=== PATIENT | male | born 1975 | race Two or more races ===

== ENCOUNTER 2017-02-28 00:53 | Inpatient (IN) | payer MEDICAID, OTHER ==
[~2017-02-28] VITALS: Ht 170.2 cm; Wt 75.0 kg
[2017-02-28] MEDS ORDERED: SODIUM CHLORIDE FLUSH 10ML SYR IVF ONE (01:30)
[2017-02-28] MEDS ORDERED: VANCOMYCIN PER PHARMACY IV ONE (01:30)
[2017-02-28] MEDS ORDERED: VANCOMYCIN 1,600 MG in SODIUM CHLORIDE 0.9% 250 ML IV ONE (01:30)
[2017-02-28] MEDS ORDERED: PIPERACILLIN/TAZO/PMX 3.375GM 50 ML IVPB ONE (01:30)
[2017-02-28] MEDS ORDERED: SODIUM CHLORIDE 0.9% 1,000ML IVBOLUS ONE (01:30)
[2017-02-28] MEDS ORDERED: PIPERACILLIN/TAZO/PMX 3.375GM 50 ML ONE (01:35)
[2017-02-28 01:44] LABS: HEMATOCRIT 38.7 % (39.2-51.8); HEMOGLOBIN 13.1 g/dL (13.7-18.0); WHITE BLOOD COUNT 10.4 x10^3/uL (3.4-10)
[2017-02-28 01:58] LABS: ASPARTATE AMINO TRANSFERASE 13 U/L (15-37); BLOOD UREA NITROGEN 27 mg/dL (7-18)
[2017-02-28] MEDS ORDERED: SODIUM CHLORIDE 0.9% 1,000 ML IV ONE (02:15)
[2017-02-28] MEDS ORDERED: MORPHINE SULFATE 4 MG/ML, 1ML IVPush PRN (02:30)
[2017-02-28] MEDS ORDERED: ONDANSETRON 2MG/ML, 2ML IVPush PRN ×2 (02:30→03:30)
[2017-02-28] MEDS: SODIUM CHLORIDE 0.9% 1,000 ML IV SCH ×2 (03:07→13:47)
[2017-02-28] MEDS ORDERED: HYDROmorphone 2 MG/ML, 1ML IVPush PRN (03:30)
[2017-02-28] MEDS ORDERED: DEXTROSE 4 GM TAB.CHEW PO PRN (03:30)
[2017-02-28] MEDS ORDERED: ACETAMINOPHEN 500 MG TABLET PO PRN (03:30)
[2017-02-28] MEDS ORDERED: GLUCAGON 1 MG IM PRN (03:30)
[2017-02-28] MEDS ORDERED: ZOLPIDEM 5MG TABLET PO PRN (03:30)
[2017-02-28] MEDS ORDERED: DEXTROSE 50%, 50ML SYRINGE IVPush PRN (03:30)
[2017-02-28] MEDS ORDERED: VANCOMYCIN PER PHARMACY MC PRN (03:30)
[2017-02-28 03:38] VITALS: BP 161/94
[2017-02-28] MEDS ORDERED: PHARMACOKINETIC CONSULTATION MC ONE (04:00)
[2017-02-28] MEDS ORDERED: PHARMACOKINETIC MONITORING MC PRN (04:00)
[2017-02-28] MEDS ORDERED: FLU VACC QS2017-18 (36MOS+) UP/PF 0.5 ML IM-VACC ONE (04:30)
[2017-02-28] MEDS ORDERED: PNEUMOCOCCAL 23 VACCINE IM-VACC ONE (04:30)
[2017-02-28] MEDS: INSULIN ASPART 100 UNITS/ML, PEN SQ-INSULIN SCH ×4 (07:00→21:00)
[2017-02-28] MEDS: PIPERACILLIN/TAZO/PMX 3.375GM 50 ML IV SCH ×3 (07:41→20:59)
[2017-02-28] MEDS: LACTULOSE 10 GM/15 ML UDC PO SCH ×2 (07:42→21:00)
[2017-02-28] MEDS: SODIUM CHLORIDE FLUSH 10ML SYR IVF SCH ×2 (07:42→20:59)
[2017-02-28 09:30] VITALS: BP 147/90
[2017-02-28 14:00] VITALS: BP 145/89
[2017-02-28] MEDS: VANCOMYCIN 1,400 MG in SODIUM CHLORIDE 0.9% 250 ML IV SCH (14:55)
[2017-02-28 19:39] VITALS: BP 130/76
[2017-03-01] MEDS: SODIUM CHLORIDE 0.9% 1,000 ML IV SCH ×3 (00:40→16:35)
[2017-03-01] MEDS: PIPERACILLIN/TAZO/PMX 3.375GM 50 ML IV SCH ×3 (01:15→13:27)
[2017-03-01 01:20] VITALS: BP 140/77
[2017-03-01] MEDS: VANCOMYCIN 1,400 MG in SODIUM CHLORIDE 0.9% 250 ML IV SCH ×2 (02:14→14:18)
[2017-03-01] MEDS: OXYcodone IR 5MG TABLET PO PRN ×2 (06:33→16:33)
[2017-03-01] MEDS: INSULIN ASPART 100 UNITS/ML, PEN SQ-INSULIN SCH ×4 (06:34→22:25)
[2017-03-01 07:22] VITALS: BP 144/88
[2017-03-01] MEDS: SODIUM CHLORIDE FLUSH 10ML SYR IVF SCH ×2 (07:31→21:04)
[2017-03-01] MEDS: LACTULOSE 10 GM/15 ML UDC PO SCH ×2 (07:31→21:00)
[2017-03-01 12:58] VITALS: BP 153/91
[2017-03-01] MEDS: LISINOPRIL 20 MG TABLET PO SCH (16:33)
[2017-03-01 20:00] VITALS: BP 144/92
[2017-03-01] MEDS: PIPERACILLIN/TAZO 3.375 GM in SODIUM CHLORIDE 0.9% 50 ML IV SCH (20:57)
[2017-03-02] MEDS: OXYcodone IR 5MG TABLET PO PRN ×3 (00:09→11:54)
[2017-03-02 02:00] VITALS: BP 151/89
[2017-03-02] MEDS: PIPERACILLIN/TAZO 3.375 GM in SODIUM CHLORIDE 0.9% 50 ML IV SCH ×5 (02:16→23:15)
[2017-03-02] MEDS: SODIUM CHLORIDE 0.9% 1,000 ML IV SCH ×2 (02:22→17:31)
[2017-03-02] MEDS: VANCOMYCIN 1,400 MG in SODIUM CHLORIDE 0.9% 250 ML IV SCH ×2 (03:01→17:31)
[2017-03-02 05:03] LABS: HEMATOCRIT 39.6 % (39.2-51.8); HEMOGLOBIN 13.1 g/dL (13.7-18.0); WHITE BLOOD COUNT 7.6 x10^3/uL (3.4-10)
[2017-03-02 05:09] LABS: ASPARTATE AMINO TRANSFERASE 10 U/L (15-37); BLOOD UREA NITROGEN 13 mg/dL (7-18)
[2017-03-02] MEDS: INSULIN ASPART 100 UNITS/ML, PEN SQ-INSULIN SCH ×4 (06:39→20:54)
[2017-03-02 06:53] VITALS: BP 150/89
[2017-03-02] MEDS: LACTULOSE 10 GM/15 ML UDC PO SCH ×2 (09:00→20:55)
[2017-03-02] MEDS: SODIUM CHLORIDE FLUSH 10ML SYR IVF SCH ×2 (11:24→23:16)
[2017-03-02] MEDS: LISINOPRIL 20 MG TABLET PO SCH (11:25)
[2017-03-02 13:25] VITALS: BP 136/87
[2017-03-02 20:06] VITALS: BP 124/74
[2017-03-03 01:25] VITALS: BP 123/86
[2017-03-03] MEDS: OXYcodone IR 5MG TABLET PO PRN ×3 (04:18→22:13)
[2017-03-03] MEDS: PIPERACILLIN/TAZO 3.375 GM in SODIUM CHLORIDE 0.9% 50 ML IV SCH ×4 (04:18→22:13)
[2017-03-03] MEDS: VANCOMYCIN 1,400 MG in SODIUM CHLORIDE 0.9% 250 ML IV SCH ×2 (05:10→17:09)
[2017-03-03] MEDS ORDERED: INSULIN DETEMIR 100 UNITS/ML, PEN SQ-INSULIN SCH ×2 (06:00→21:00)
[2017-03-03 06:41] VITALS: BP 145/68
[2017-03-03] MEDS: SODIUM CHLORIDE FLUSH 10ML SYR IVF SCH ×2 (08:59→20:56)
[2017-03-03] MEDS: INSULIN ASPART 100 UNITS/ML, PEN SQ-INSULIN SCH ×4 (08:59→20:56)
[2017-03-03] MEDS: LISINOPRIL 20 MG TABLET PO SCH (09:00)
[2017-03-03] MEDS: LACTULOSE 10 GM/15 ML UDC PO SCH ×2 (09:00→20:56)
[2017-03-03] MEDS: SODIUM CHLORIDE 0.9% 1,000 ML IV SCH (10:42)
[2017-03-03 12:48] VITALS: BP 123/74
[2017-03-03 20:16] VITALS: BP 156/90
[2017-03-04 02:26] VITALS: BP 127/79
[2017-03-04] MEDS: SODIUM CHLORIDE 0.9% 1,000 ML IV SCH ×2 (02:39→16:03)
[2017-03-04] MEDS: OXYcodone IR 5MG TABLET PO PRN ×3 (02:39→20:28)
[2017-03-04] MEDS: PIPERACILLIN/TAZO 3.375 GM in SODIUM CHLORIDE 0.9% 50 ML IV SCH ×4 (04:45→22:39)
[2017-03-04] MEDS: VANCOMYCIN 1,400 MG in SODIUM CHLORIDE 0.9% 250 ML IV SCH ×2 (05:32→16:59)
[2017-03-04] MEDS: INSULIN ASPART 100 UNITS/ML, PEN SQ-INSULIN SCH ×4 (06:29→20:23)
[2017-03-04 06:35] VITALS: BP 143/86
[2017-03-04] MEDS: LISINOPRIL 20 MG TABLET PO SCH (07:35)
[2017-03-04] MEDS: SODIUM CHLORIDE FLUSH 10ML SYR IVF SCH ×2 (07:35→20:22)
[2017-03-04] MEDS: LACTULOSE 10 GM/15 ML UDC PO SCH ×2 (07:36→20:23)
[2017-03-04] MEDS: INSULIN DETEMIR 100 UNITS/ML, PEN SQ-INSULIN SCH ×2 (07:50→20:23)
[2017-03-04] MEDS: MAGNESIUM OXIDE 400 MG TABLET PO SCH ×2 (11:00→20:22)
[2017-03-04 12:57] VITALS: BP 116/71
[2017-03-04 19:16] VITALS: BP 134/78
[2017-03-05 03:55] VITALS: BP 145/87
[2017-03-05] MEDS: PIPERACILLIN/TAZO 3.375 GM in SODIUM CHLORIDE 0.9% 50 ML IV SCH ×4 (04:37→22:24)
[2017-03-05] MEDS: VANCOMYCIN 1,400 MG in SODIUM CHLORIDE 0.9% 250 ML IV SCH ×2 (05:17→17:01)
[2017-03-05 05:39] LABS: HEMATOCRIT 37.5 % (39.2-51.8); HEMOGLOBIN 12.6 g/dL (13.7-18.0); WHITE BLOOD COUNT 7.1 x10^3/uL (3.4-10)
[2017-03-05 06:03] LABS: ASPARTATE AMINO TRANSFERASE 15 U/L (15-37); BLOOD UREA NITROGEN 13 mg/dL (7-18)
[2017-03-05 06:27] VITALS: BP 161/90
[2017-03-05] MEDS: MAGNESIUM OXIDE 400 MG TABLET PO SCH ×2 (07:23→20:38)
[2017-03-05] MEDS: LACTULOSE 10 GM/15 ML UDC PO SCH ×2 (07:24→20:38)
[2017-03-05] MEDS: LISINOPRIL 20 MG TABLET PO SCH (07:24)
[2017-03-05] MEDS: INSULIN DETEMIR 100 UNITS/ML, PEN SQ-INSULIN SCH ×2 (07:36→20:39)
[2017-03-05] MEDS: SODIUM CHLORIDE FLUSH 10ML SYR IVF SCH ×2 (07:36→20:40)
[2017-03-05] MEDS: INSULIN ASPART 100 UNITS/ML, PEN SQ-INSULIN SCH ×4 (07:37→20:40)
[2017-03-05] MEDS: SODIUM CHLORIDE 0.9% 1,000 ML IV SCH (10:37)
[2017-03-05 13:25] VITALS: BP 140/81
[2017-03-05 20:08] VITALS: BP 155/87
[2017-03-05] MEDS: OXYcodone IR 5MG TABLET PO PRN (20:39)
[2017-03-06] MEDS: SODIUM CHLORIDE 0.9% 1,000 ML IV SCH ×2 (00:32→17:38)
[2017-03-06 01:28] VITALS: BP 157/87
[2017-03-06] MEDS: PIPERACILLIN/TAZO 3.375 GM in SODIUM CHLORIDE 0.9% 50 ML IV SCH ×4 (03:39→22:51)
[2017-03-06] MEDS: VANCOMYCIN 1,400 MG in SODIUM CHLORIDE 0.9% 250 ML IV SCH ×2 (04:19→17:38)
[2017-03-06] MEDS ORDERED: NEOSPORIN OINT, 15GM ONE (06:11)
[2017-03-06] MEDS ORDERED: EPINEPHRINE 1 MG/ML, 1ML ONE (06:11)
[2017-03-06] MEDS ORDERED: BUPIVACAINE/PF 0.5% ONE (06:11)
[2017-03-06 06:24] VITALS: BP 134/84
[2017-03-06] MEDS: INSULIN ASPART 100 UNITS/ML, PEN SQ-INSULIN SCH ×4 (07:00→20:22)
[2017-03-06] MEDS ORDERED: ONDANSETRON 2MG/ML, 2ML ONE (07:11)
[2017-03-06] MEDS ORDERED: KETOROLAC 30 MG/1 ML ONE (07:11)
[2017-03-06] MEDS ORDERED: PROPOFOL 10 MG/ML, 20ML ONE (07:11)
[2017-03-06] MEDS ORDERED: DEXAMETHASONE 4 MG/ML, 1ML ONE (07:11)
[2017-03-06] MEDS ORDERED: CEFAZOLIN 1,000 MG ONE (07:11)
[2017-03-06] MEDS ORDERED: PROMETHAZINE 25 MG/ML, 1ML IV PRN (08:00)
[2017-03-06] MEDS ORDERED: ACETAMINOPHEN 325 MG TABLET PO PRN (08:00)
[2017-03-06] MEDS ORDERED: hydrALAzine 20 MG/ML, 1ML IV PRN (08:00)
[2017-03-06] MEDS ORDERED: HYDROmorphone 1 MG/ML, 1ML IV PRN (08:00)
[2017-03-06] MEDS ORDERED: FENTANYL PF 100 MCG/2ML IV PRN (08:00)
[2017-03-06] MEDS ORDERED: LABETALOL 5MG/ML, 20ML IV PRN (08:00)
[2017-03-06] MEDS ORDERED: ONDANSETRON 2MG/ML, 2ML IVPush PRN (08:00)
[2017-03-06] MEDS ORDERED: MEPERIDINE/PF 25MG/0.5ML IVPush PRN (08:00)
[2017-03-06] MEDS ORDERED: OXYcodone 5 MG/5 ML ORAL.SOL UDC PO PRN (08:00)
[2017-03-06 08:47] VITALS: BP 148/85
[2017-03-06] MEDS: OXYcodone IR 5MG TABLET PO PRN ×3 (08:52→19:55)
[2017-03-06] MEDS: SODIUM CHLORIDE FLUSH 10ML SYR IVF SCH ×2 (09:00→20:23)
[2017-03-06] MEDS: LACTULOSE 10 GM/15 ML UDC PO SCH ×2 (09:00→20:23)
[2017-03-06] MEDS: LISINOPRIL 20 MG TABLET PO SCH (09:54)
[2017-03-06] MEDS: MAGNESIUM OXIDE 400 MG TABLET PO SCH ×2 (09:54→20:22)
[2017-03-06] MEDS: INSULIN DETEMIR 100 UNITS/ML, PEN SQ-INSULIN SCH ×2 (09:55→20:23)
[2017-03-06 12:16] VITALS: BP 132/88
[2017-03-06 19:40] VITALS: BP 166/86
[2017-03-07 00:01] VITALS: BP 158/72
[2017-03-07] MEDS: OXYcodone IR 5MG TABLET PO PRN ×3 (02:56→22:41)
[2017-03-07] MEDS: PIPERACILLIN/TAZO 3.375 GM in SODIUM CHLORIDE 0.9% 50 ML IV SCH ×4 (04:14→22:36)
[2017-03-07 04:20] VITALS: BP 149/81
[2017-03-07] MEDS: VANCOMYCIN 1,400 MG in SODIUM CHLORIDE 0.9% 250 ML IV SCH (05:43)
[2017-03-07 07:17] VITALS: BP 144/72
[2017-03-07] MEDS: INSULIN ASPART 100 UNITS/ML, PEN SQ-INSULIN SCH ×4 (07:49→22:37)
[2017-03-07] MEDS: SODIUM CHLORIDE 0.9% 1,000 ML IV SCH ×2 (07:49→22:35)
[2017-03-07] MEDS: LACTULOSE 10 GM/15 ML UDC PO SCH ×2 (07:50→22:38)
[2017-03-07] MEDS: LISINOPRIL 20 MG TABLET PO SCH (07:51)
[2017-03-07] MEDS: MAGNESIUM OXIDE 400 MG TABLET PO SCH ×2 (07:51→22:35)
[2017-03-07] MEDS: SODIUM CHLORIDE FLUSH 10ML SYR IVF SCH ×2 (07:55→22:38)
[2017-03-07] MEDS: INSULIN DETEMIR 100 UNITS/ML, PEN SQ-INSULIN SCH ×2 (09:33→22:38)
[2017-03-07 13:25] VITALS: BP 136/87
[2017-03-07 19:32] VITALS: BP 127/78
[2017-03-07] MEDS ORDERED: VANCOMYCIN 1,500 MG in SODIUM CHLORIDE 0.9% 250 ML IV SCH (23:00)
[2017-03-08 02:26] VITALS: BP 144/88
[2017-03-08] MEDS: OXYcodone IR 5MG TABLET PO PRN ×2 (04:22→14:32)
[2017-03-08] MEDS: PIPERACILLIN/TAZO 3.375 GM in SODIUM CHLORIDE 0.9% 50 ML IV SCH ×2 (04:25→10:40)
[2017-03-08] MEDS: INSULIN ASPART 100 UNITS/ML, PEN SQ-INSULIN SCH ×2 (06:47→11:16)
[2017-03-08 07:30] VITALS: BP 180/96
[2017-03-08] MEDS: SODIUM CHLORIDE FLUSH 10ML SYR IVF SCH (09:00)
[2017-03-08] MEDS: LISINOPRIL 20 MG TABLET PO SCH (09:32)
[2017-03-08] MEDS: MAGNESIUM OXIDE 400 MG TABLET PO SCH (09:32)
[2017-03-08] MEDS: LACTULOSE 10 GM/15 ML UDC PO SCH (09:32)
[2017-03-08] MEDS: INSULIN DETEMIR 100 UNITS/ML, PEN SQ-INSULIN SCH (09:33)
[2017-03-08] MEDS: SODIUM CHLORIDE 0.9% 1,000 ML IV SCH (10:40)
[2017-03-08] MEDS ORDERED: INSU100I28 SQ-INSULIN (13:10)
[2017-03-08] MEDS ORDERED: OXYC5TAB3 PO (13:10)
[2017-03-08] MEDS ORDERED: LISI-170 PO (13:10)
[2017-03-08 14:35] VITALS: BP 153/78
== END 2017-03-08 15:16 | disposition home or self-care (01) | DRG 616 ==
LOC: ED 01:52 → EDIP 02:15 → 4NOR 03:25 → DCLOUNGE 03-08 14:38
PROVIDERS: ADMIT Hospitalist; ATTEND Hospitalist
PROC: 0Y6S0Z0 Detachment at Left 2nd Toe, Complete, Open Approach (ICD-10-PCS; principal; 2017-03-06 07:00)
DX: E11.69 Type 2 diabetes mellitus with other specified complication (principal); E43 Unspecified severe protein-calorie malnutrition; M86.171 Other acute osteomyelitis, right ankle and foot; L03.116 Cellulitis of left lower limb; E11.621 Type 2 diabetes mellitus with foot ulcer; L97.509 Non-pressure chronic ulcer of other part of unspecified foot with unspecified severity; D64.9 Anemia, unspecified; Z68.25 Body mass index [BMI] 25.0-25.9, adult; I10 Essential (primary) hypertension; L03.031 Cellulitis of right toe; Z79.4 Long term (current) use of insulin; Z83.3 Family history of diabetes mellitus
CPT/HCPCS: 36415; 80053; 80202; 82962; 83036; 83605; 83735; 84100; 84145; 85025; 87040; 87070; 87075; 87077; 87186; 87205; 88300; 88305; 88311; 90686; 90732; 93005; 96365; 96366; 96368; J0171; J0690; J1100; J1815; J1885; J2405; J2543; J2704; J3370; J3490; J7030; J7050